=== PATIENT | male | born 1965 | race Caucasian/White ===

== ENCOUNTER 2021-11-02 14:47 | Emergency (ER) | payer MEDICARE, MEDICAID ==
[~2021-11-02] VITALS: Ht 175.3 cm; Wt 102.2 kg
[2021-11-02] VITALS (10 sets, daily range): BP systolic 114–141; BP diastolic 67–89
[2021-11-02 15:31] LABS: HEMATOCRIT 45.2 % (39.0-50.0); HEMOGLOBIN 14.9 g/dl (14.0-18.0); IMMATURE GRANULOCYTES 0.3 % (0.0-5.0); MEAN CELL VOLUME 83.7 fL CALC (80.0-100.0); MEAN CORPUSCULAR HGB 27.6 pG CALC (26.0-32.0); NEUT# 6.78 thou/uL (1.82-7.42); RED BLOOD COUNT 5.4 mill/uL (4.70-6.10); RED CELL DISTRI WIDTH 14.2 % (11.5-15.5)
[2021-11-02 15:49] LABS: ALBUMIN 4.5 g/dL (3.2-5.0); ALKALINE PHOSPHATASE 122 u/l (38-126); ANION GAP 20 (6-22 (CALC)); BILIRUBIN, TOTAL 0.8 mg/dL (0.0-1.4); BUN 19 mg/dL (9-20); BUN/CREATININE RATIO 15 (12-20 (CALC)); CARBON DIOXIDE 19 mmol/l (22-30); CHLORIDE 99 mmol/l (95-108); CREATININE 1.2 mg/dL (0.7-1.3); GFR FOR AFR.AMER. > 60 ML/MIN (>=60 (CALC)); GFR OTHER RACES > 60 ML/MIN (>=60 (CALC)); POTASSIUM 4.1 mmol/l (3.5-5.1); SGOT/AST 48 u/l (17-59); SODIUM 134 mmol/l (137-146); TOTAL PROTEIN 7.4 g/dL (6.3-8.2)
[2021-11-02 16:01] LABS: MYOGLOBIN 421 ng/mL (0 - 121)
[2021-11-02 17:49] LABS: URINE BILIRUBIN - DIPSTICK NEGATIVE (NEGATIVE); URINE BLOOD DIPSTICK NEGATIVE (NEGATIVE); URINE COLOR YELLOW; URINE GLUCOSE - DIPSTICK >=1000 mg/dL (NEGATIVE); URINE KETONE NEGATIVE (NEGATIVE); URINE LEUK ESTERASE NEGATIVE (NEGATIVE); URINE PROTEIN - DIPSTICK NEGATIVE (NEG-TRACE); URINE UROBILINOGEN - DIPSTICK 0.2 E.U./dL (0.2)
[2021-11-02 17:52] LABS: URINE NITRITE - DIPSTICK NEGATIVE (Negative)
[2021-11-02] MEDS ORDERED: NAPROXEN500 MG PO (18:01)
== END 2021-11-02 19:03 | disposition home or self-care (01) ==
LOC: ED 14:47
PROVIDERS: Emergency Medicine
DX: E86.0 Dehydration (principal); R53.1 Weakness; E11.9 Type 2 diabetes mellitus without complications; Z20.822 Contact with and (suspected) exposure to COVID-19